=== PATIENT | female | born 1980 | race Caucasian/White ===

== ENCOUNTER 2018-12-09 06:08 | Day surgery (SDC) | payer OTHER ==
[2018-12-06 13:09] VITALS: BMI 33.5
[2018-12-09] MEDS ORDERED: ROPIVACAINE HCL 0.5% 30ML VIAL ONE (07:18)
[2018-12-09] MEDS ORDERED: MIDAZOLAM HCL 2 MG/2 ML SINGLE DOSE VIAL ONE (07:18)
[2018-12-09] MEDS ORDERED: EPINEPHrine 1:1,000 1 MG/1 ML - 30ML VIAL (INJECTION) ONE (07:26)
[2018-12-09] MEDS ORDERED: SUCCINYLCHOLINE CHLORIDE 200 MG/10 ML VIAL ONE (08:09)
[2018-12-09] MEDS ORDERED: PROPOFOL 20 ML ONE ×4 (08:09)
[2018-12-09] MEDS ORDERED: ONDANSETRON 4 MG/2 ML VIAL ONE (08:10)
[2018-12-09] MEDS ORDERED: DEXAMETHASONE SOD PHOSPHATE 4 MG/1 ML VIAL ONE (08:10)
[2018-12-09] MEDS ORDERED: KETOROLAC TROMETHAMINE 30 MG/1 ML VIAL ONE (08:10)
[2018-12-09] MEDS ORDERED: ceFAZolin SODIUM 1 GM VIAL ONE (08:10)
[2018-12-09] MEDS ORDERED: ACETAMINOPHEN 325 MG TABLET (FP) PO SCH (09:00)
[2018-12-09] MEDS ORDERED: PROMETHAZINE HCL 25 MG/1 ML VIAL IVPUSH PRN (09:00)
[2018-12-09] MEDS ORDERED: ONDANSETRON 4 MG/2 ML VIAL IVPUSH PRN (09:00)
[2018-12-09] MEDS ORDERED: oxyCODONE HCL 5 MG TABLET PO PRN ×2 (09:00)
--- NOTE | 2018-12-09 09:44 | OP ---
DATE OF OPERATION: 12/09/2018 SURGEON: Becca Garcia MD ASSISSTANT: JULIA Toledo PREOPERATIVE DIAGNOSES: 1. Left shoulder rotator cuff tear. 2. Left shoulder adhesive capsulitis. 3. Left shoulder impingement syndrome. 4. Left shoulder acromioclavicular joint tear. 5. Left shoulder superior labral tear, anterior-posterior synovitis. POSTOPERATIVE DIAGNOSES: 1. Left shoulder rotator cuff tear. 2. Left shoulder adhesive capsulitis. 3. Left shoulder impingement syndrome. 4. Left shoulder acromioclavicular joint tear. 5. Left shoulder superior labral tear, anterior-posterior synovitis. PROCEDURE: 1. Left shoulder arthroscopy with arthroscopic rotator cuff repair, CPT code 25073. 2. Left shoulder arthroscopy with lysis and resection of adhesions, CPT code 00753. 3. Left shoulder arthroscopy with subacromial decompression, CPT code 90163. 4. Left shoulder arthroscopy with resection of the distal clavicle, acromioclavicular joint, CPT code 18028.. 5. Left shoulder arthroscopy with debridement, CPT code 24258. FINDINGS: 1. Anterior labral tear, partial. 2. Superior labral tear, anterior posterior type 1. 3. Posterior labral fraying. 4. Glenohumeral synovitis with adhesions. 5. Partial biceps tear 10%. 6. Full-thickness rotator cuff tear. 7. Type 2 acromion with anterior spurring. 8. Thickened scar tissue subacromial space with adhesions to scar tissue. 9. Inferior spurs distal clavicle with acromioclavicular joint disease. REPAIR TYPE: Single mattress sutures placed into the supraspinatus and secured to a bleeding bone bed on the greater tuberosity. DESCRIPTION OF PROCEDURE: Informed consent was obtained. The patient was taken to the operating room, where the upper extremity was prepped and draped in a sterile fashion. The shoulder was manipulated for a full range of motion. A posterior incision portal was made and directed to the glenohumeral joint. Under direct visualization, an anterior incision and portal was made. Extensive synovitis, as well as chondral injuries throughout the glenohumeral joint were debrided and removed. Any identified labral injuries, including the superior labral tear, anterior and posterior, and anterior labrum torn portions, were removed as well. The rotator cuff was visualized and noted to have a full-thickness tear. The edges were debrided. The posterior incision portal was redirected to the subacromial space where a lateral incision portal was made. Excessive and thickened scar tissue noted throughout the subacromial space, including bursal and scar tissue, were removed. The type 2 acromion was converted into a flattened type 1 using a bur for subacromial decompression. The distal inferior spur at the distal clavicle was also debrided with the use of an accessory portal in the acromioclavicular joint. The edges of the rotator cuff were identified. Sutures were placed into the rotator cuff and secured using anchors through the greater tuberosity. Prior to securing, a bleeding bed was made using a small bur, creating a bleeding surface of the rotator cuff insertion. The shoulder was then drained, a single suture was placed in all portals, a sterile dressing was placed and the patient was transferred to the recovery room without complication. The PA listed above was present and assisted at surgery. Their presence was absolutely medically necessary for the completion of the procedure. They helped hold the arthroscopy, pass instruments (and implants when indicated) and the procedure could not have been completed without their assistance. MEDICAL NECESSITY FOR PHYSICIANS WHEEL PRESSER: JULIA Toledo, was present during the case, and his assistance was medically necessary. He assisted with use of the camera, implanting the implants, and positioning of the arm. Without his assistance, the case could not have been performed. BECCA GARCIA M.D. [id number]
[2018-12-09 09:58] VITALS: TEMP 98
[2018-12-09 10:26] VITALS: BP 116/68; PULSE 80
== END 2018-12-09 10:37 | disposition home or self-care (01) ==
LOC: FASU 06:08
PROVIDERS: ATTEND Orthopaedic Surgery
PROC: 0RNK4ZZ Release Left Shoulder Joint, Percutaneous Endoscopic Approach (ICD-10-PCS; 2018-12-09)
PROC: 0PBB4ZZ Excision of Left Clavicle, Percutaneous Endoscopic Approach (ICD-10-PCS; 2018-12-09)
PROC: 0RBK4ZZ Excision of Left Shoulder Joint, Percutaneous Endoscopic Approach (ICD-10-PCS; 2018-12-09)
PROC: 0LQ24ZZ Repair Left Shoulder Tendon, Percutaneous Endoscopic Approach (ICD-10-PCS; principal; 2018-12-09 08:21)
DX: M75.122 Complete rotator cuff tear or rupture of left shoulder, not specified as traumatic (principal); M75.02 Adhesive capsulitis of left shoulder; M75.42 Impingement syndrome of left shoulder; M24.112 Other articular cartilage disorders, left shoulder; M65.812 Other synovitis and tenosynovitis, left shoulder; S43.52XA Sprain of left acromioclavicular joint, initial encounter; X58.XXXA Exposure to other specified factors, initial encounter; Y93.9 Activity, unspecified; Y92.9 Unspecified place or not applicable
CPT/HCPCS: 84703